=== PATIENT | female | born 1940 | race Caucasian/White ===

== ENCOUNTER 2018-04-12 10:41 | Inpatient (IN) | payer MEDICARE, OTHER ==
[~2018-04-12] VITALS: Ht 175.3 cm; Wt 73.5 kg
[~2018-04-12 10:41] MED LIST: Cipro500 MG PO; Flagyl500 MG PO; Percocet 5-3251 EACH PO; Zofran Odt4 MG SL
[2018-04-12 11:40] LABS: BASOPHILS ABSOLUTE AUTO 0.01 K/mm3 (0.00-0.23); BASOPHILS PERCENT AUTO 0 % (0-2); EOSINOPHILS ABSOLUTE AUTO 0.03 K/mm3 (0.00-0.68); EOSINOPHILS PERCENT AUTO 1 % (0-6); IMMATURE GRAN ABSOLUTE AUTO 0.01 K/mm3 (0.00-0.10); IMMATURE GRAN PERCENT AUTO 0 % (0-1); LYMPHOCYTES ABSOLUTE AUTO 0.69 K/mm3 (0.84-5.20); LYMPHOCYTES PERCENT AUTO 15 % (21-46); MONOCYTES ABSOLUTE AUTO 0.44 K/mm3 (0.16-1.47); MONOCYTES PERCENT AUTO 10 % (4-13); Mean Corpuscular HGB Conc 34.1 g/dL (31.5-36.5); Mean Corpuscular Volume 88 fL (80-100); Mean Platelet Volume 9.2 fL (9.1-12.4); NEUTROPHILS ABSOLUTE AUTO 3.46 K/mm3 (1.96-9.15); NEUTROPHILS PERCENT AUTO 75 % (41-73); Platelet Count 231 K/mm3 (150-400); RDW Coefficient Variation 12.8 % (11.7-14.2); RDW Standard Deviation 41.3 fL (35.1-46.3); Red Blood Cell Count 4.66 M/mm3 (3.80-5.20); White Blood Cell Count 4.64 K/mm3 (4.00-11.30)
[2018-04-12 11:56] LABS: Alanine Aminotransfer (ALT/SGP 20 U/L (12-78); Albumin, Blood 3.6 g/dL (3.4-5.0); Albumin/Globulin Ratio 0.9 (0.8-1.8); Alk Phos 124 U/L (50-136); Anion Gap 8 mmol/L (6-16); Aspartate Aminotrans (AST/SGOT 19 U/L (12-37); Bilirubin, Total 0.6 mg/dL (0.1-1.0); Blood Urea Nitrogen 9 mg/dL (8-24); Bun/Creatinine Ratio 12.1 (12.0-20.0); CO2, Blood 26 mmol/L (21-32); Calcium, Blood 9.4 mg/dL (8.5-10.1); Chloride, Blood 105 mmol/L (98-108); Creatinine, Blood 0.74 mg/dL (0.40-1.00); Globulin, Blood 3.8 g/dL (2.2-4.0); Glomerular Filtration Rate >60 (60-); Glucose, Blood 104 mg/dL (70-99); Potassium, Blood 3.7 mmol/L (3.5-5.5); Sodium, Blood 139 mmol/L (136-145); Total Protein, Blood 7.4 g/dL (6.4-8.2)
[2018-04-13 17:37] LABS: BASOPHILS ABSOLUTE AUTO 0.01 K/mm3 (0.00-0.23); BASOPHILS PERCENT AUTO 0 % (0-2); EOSINOPHILS PERCENT AUTO 0 % (0-6); Hematocrit 41.3 % (33.0-51.0); IMMATURE GRAN ABSOLUTE AUTO 0.03 K/mm3 (0.00-0.10); IMMATURE GRAN PERCENT AUTO 0 % (0-1); LYMPHOCYTES ABSOLUTE AUTO 0.55 K/mm3 (0.84-5.20); LYMPHOCYTES PERCENT AUTO 7 % (21-46); MONOCYTES PERCENT AUTO 8 % (4-13); Mean Corpuscular HGB 29.9 pg (26.0-34.0); Mean Corpuscular HGB Conc 33.9 g/dL (31.5-36.5); Mean Corpuscular Volume 88 fL (80-100); Mean Platelet Volume 9.2 fL (9.1-12.4); NEUTROPHILS ABSOLUTE AUTO 7.22 K/mm3 (1.96-9.15); NEUTROPHILS PERCENT AUTO 85 % (41-73); Platelet Count 179 K/mm3 (150-400); Red Blood Cell Count 4.68 M/mm3 (3.80-5.20); White Blood Cell Count 8.51 K/mm3 (4.00-11.30)
[2018-04-13 17:51] LABS: Alanine Aminotransfer (ALT/SGP 280 U/L (12-78); Albumin, Blood 3.3 g/dL (3.4-5.0); Albumin/Globulin Ratio 0.9 (0.8-1.8); Alk Phos 392 U/L (50-136); Anion Gap 7 mmol/L (6-16); Aspartate Aminotrans (AST/SGOT 276 U/L (12-37); Bilirubin, Total 3.5 mg/dL (0.1-1.0); Blood Urea Nitrogen 5 mg/dL (8-24); Bun/Creatinine Ratio 9.4 (12.0-20.0); CO2, Blood 26 mmol/L (21-32); Chloride, Blood 106 mmol/L (98-108); Creatinine, Blood 0.53 mg/dL (0.40-1.00); Globulin, Blood 3.5 g/dL (2.2-4.0); Glomerular Filtration Rate >60 (60-); Glucose, Blood 133 mg/dL (70-99); Potassium, Blood 3.5 mmol/L (3.5-5.5); Sodium, Blood 139 mmol/L (136-145); Total Protein, Blood 6.8 g/dL (6.4-8.2)
== END 2018-04-13 19:00 | disposition short-term general hospital (02) | DRG 444 ==
LOC: ER 10:41 → SURS 12:54
PROVIDERS: Emergency Medicine; Surgery
DX: K80.50 Calculus of bile duct without cholangitis or cholecystitis without obstruction (principal); K82.2 Perforation of gallbladder; Z79.899 Other long term (current) drug therapy; Z96.649 Presence of unspecified artificial hip joint
CPT/HCPCS: 36415; 74183; 76705; 80053; 83690; 85025; 93005; 93010; 94762; 96360; 99285-25; A9577; J0295; J1170; J2405; J2550; J3010; J7030; J7120

== ENCOUNTER 2024-11-20 22:08 | Inpatient (IN) | payer MEDICARE, OTHER ==
[~2024-11-20] VITALS: Ht 175.3 cm; Wt 72.8 kg
[~2024-11-20 22:08] MED LIST changes: +ONDA4ODT MM; +Prednisone20 MG PO; +Protonix40 MG PO; +VALA500 PO
[2024-11-20] MEDS ORDERED: Metoprolol Tartrate 1 MG/ML 5 ML VIAL IV PRN (22:25)
[2024-11-20 22:29] LABS: BASOPHILS ABSOLUTE AUTO 0.04 K/mm3 (0.00-0.23); BASOPHILS PERCENT AUTO 1 % (0-2); EOSINOPHILS ABSOLUTE AUTO 0.04 K/mm3 (0.00-0.68); EOSINOPHILS PERCENT AUTO 1 % (0-6); Hematocrit 38.4 % (33.0-51.0); Hemoglobin 12.5 g/dL (11.5-16.0); IMMATURE GRAN ABSOLUTE AUTO 0.01 K/mm3 (0.00-0.10); IMMATURE GRAN PERCENT AUTO 0 % (0-1); LYMPHOCYTES ABSOLUTE AUTO 1.91 K/mm3 (0.84-5.20); LYMPHOCYTES PERCENT AUTO 33 % (21-46); MONOCYTES ABSOLUTE AUTO 0.54 K/mm3 (0.16-1.47); MONOCYTES PERCENT AUTO 9 % (4-13); Mean Corpuscular HGB 30.8 pg (26.0-34.0); Mean Corpuscular HGB Conc 32.6 g/dL (31.5-36.5); Mean Corpuscular Volume 95 fL (80-100); Mean Platelet Volume 10.4 fL (9.1-12.4); NEUTROPHILS ABSOLUTE AUTO 3.34 K/mm3 (1.96-9.15); NEUTROPHILS PERCENT AUTO 57 % (41-73); Platelet Count 178 K/mm3 (150-400); RDW Coefficient Variation 14.2 % (11.7-14.2); RDW Standard Deviation 49.1 fL (35.1-46.3); Red Blood Cell Count 4.06 M/mm3 (3.80-5.20); White Blood Cell Count 5.88 K/mm3 (4.00-11.30)
[2024-11-20] MEDS ORDERED: ELIQUIS5 M2 PO (22:33)
[2024-11-20] MEDS ORDERED: CARV6.25 PO (22:33)
[2024-11-20 22:45] LABS: Calcium, Blood 8.6 mg/dL (8.5-10.1); Creatinine, Blood 0.73 mg/dL (0.40-1.00); Potassium, Blood 3.7 mmol/L (3.5-5.5)
[2024-11-21] MEDS ORDERED: FLU VACC TS2024-25(6MOS UP)/PF 45 MCG/0.5 ML SYRINGE IM ONE (00:30)
[2024-11-21] MEDS ORDERED: Acetaminophen 325 MG TABLET PO PRN (00:30)
[2024-11-21] MEDS ORDERED: Metoprolol Tartrate 25 MG Tab PO ONE (01:00)
[2024-11-21] MEDS ORDERED: Ondansetron 4 MG SoluTab SL PRN (03:55)
[2024-11-21] MEDS ORDERED: Melatonin 5 MG Tablet PO PRN (03:55)
[2024-11-21] MEDS ORDERED: Melatonin 5 MG Tablet PO ONE (04:00)
[2024-11-21 06:19] LABS: BASOPHILS ABSOLUTE AUTO 0.03 K/mm3 (0.00-0.23); BASOPHILS PERCENT AUTO 1 % (0-2); EOSINOPHILS ABSOLUTE AUTO 0.05 K/mm3 (0.00-0.68); EOSINOPHILS PERCENT AUTO 1 % (0-6); Hematocrit 39.6 % (33.0-51.0); Hemoglobin 12.8 g/dL (11.5-16.0); IMMATURE GRAN ABSOLUTE AUTO 0.02 K/mm3 (0.00-0.10); IMMATURE GRAN PERCENT AUTO 0 % (0-1); LYMPHOCYTES ABSOLUTE AUTO 1.35 K/mm3 (0.84-5.20); LYMPHOCYTES PERCENT AUTO 22 % (21-46); MONOCYTES ABSOLUTE AUTO 0.53 K/mm3 (0.16-1.47); MONOCYTES PERCENT AUTO 9 % (4-13); Mean Corpuscular HGB 30.9 pg (26.0-34.0); Mean Corpuscular HGB Conc 32.3 g/dL (31.5-36.5); Mean Corpuscular Volume 96 fL (80-100); Mean Platelet Volume 10.8 fL (9.1-12.4); NEUTROPHILS ABSOLUTE AUTO 4.13 K/mm3 (1.96-9.15); NEUTROPHILS PERCENT AUTO 68 % (41-73); Platelet Count 181 K/mm3 (150-400); RDW Coefficient Variation 14.3 % (11.7-14.2); RDW Standard Deviation 49.3 fL (35.1-46.3); Red Blood Cell Count 4.14 M/mm3 (3.80-5.20); White Blood Cell Count 6.11 K/mm3 (4.00-11.30)
[2024-11-21 06:50] LABS: Albumin, Blood 3.7 g/dL (3.4-5.0); Albumin/Globulin Ratio 1.3 (0.8-1.8); Bilirubin, Total 1.4 mg/dL (0.1-1.0); Bun/Creatinine Ratio 39.1 (12.0-20.0); Creatinine, Blood 0.77 mg/dL (0.40-1.00); Globulin, Blood 2.9 g/dL (2.2-4.0); Total Protein, Blood 6.6 g/dL (6.4-8.2)
[2024-11-21 08:47] VITALS: BP 113/84
[2024-11-21] MEDS ORDERED: FURO20 PO (08:59)
[2024-11-21] MEDS ORDERED: Apixaban 5 MG Tab PO SCH (09:00)
[2024-11-21] MEDS ORDERED: Metoprolol Tartrate 25 MG Tab PO SCH (09:00)
[2024-11-21] MEDS ORDERED: HyDROXyzine HCl 25 MG Tab PO PRN (12:05)
[2024-11-21] MEDS ORDERED: Furosemide 10 MG / ML 2ML Vial IV SCH (13:00)
[2024-11-21] MEDS ORDERED: Furosemide 10 MG / ML 2ML Vial IV ONE (13:00)
[2024-11-21 13:14] VITALS: BP 111/86
[2024-11-21 15:26] VITALS: BP 95/74
[2024-11-21 17:08] VITALS: BP 101/76
--- NOTE | 2024-11-21 17:48 | NUR ---
PT CAME FROM ED THIS MORNING. PT ON TELE AND CONT BIOX SAT HIGH 90'S ON RA. PT HAD C/O HEADACHE AT START OF SHIFT WITH PRN TYLENOL GIVEN WITH EFFECT. PT IS STBY IN ROOM TO BATHROOM.
[2024-11-21 19:40] VITALS: BP 103/81
[2024-11-22 00:16] VITALS: BP 92/71
--- NOTE | 2024-11-22 03:40 | NUR ---
AAOX4, INDEPENDENT IN ROOM. TELE, AFIB 110'S. 1L O2 VIA NC @ HS. RESTLESS NIGHT, UNABLE TO GET COMFORTABLE AND ANXIOUS. ADMING PRN MEDICATIONS WITH SOME RELIEF.
[2024-11-22 03:47] VITALS: BP 98/73
[2024-11-22 05:52] LABS: Hematocrit 35.7 % (33.0-51.0); Hemoglobin 11.6 g/dL (11.5-16.0); Mean Corpuscular HGB 30.7 pg (26.0-34.0); Mean Corpuscular HGB Conc 32.5 g/dL (31.5-36.5); Mean Corpuscular Volume 94 fL (80-100); Mean Platelet Volume 11.2 fL (9.1-12.4); Platelet Count 153 K/mm3 (150-400); RDW Coefficient Variation 14.3 % (11.7-14.2); RDW Standard Deviation 48.7 fL (35.1-46.3); Red Blood Cell Count 3.78 M/mm3 (3.80-5.20); White Blood Cell Count 5.72 K/mm3 (4.00-11.30)
[2024-11-22] MEDS ORDERED: Pantoprazole Sodium 40 MG Tab PO SCH (06:00)
[2024-11-22 06:17] LABS: Albumin, Blood 3.3 g/dL (3.4-5.0); Albumin/Globulin Ratio 1.3 (0.8-1.8); Bilirubin, Total 1.4 mg/dL (0.1-1.0); Calcium, Blood 8.4 mg/dL (8.5-10.1); Creatinine, Blood 1.03 mg/dL (0.40-1.00); Globulin, Blood 2.6 g/dL (2.2-4.0); Potassium, Blood 3.8 mmol/L (3.5-5.5); Total Protein, Blood 5.9 g/dL (6.4-8.2)
[2024-11-22 07:48] VITALS: BP 103/81
[2024-11-22 10:22] VITALS: BP 116/90
[2024-11-22] MEDS ORDERED: Empagliflozin 10 MG TAB PO SCH (13:00)
[2024-11-22 15:38] VITALS: BP 120/68
--- NOTE | 2024-11-22 17:39 | NUR ---
PT HAD SOB AND WHEN AMBUATING. PT NEEDED 1 L NC TO KEEP ABOVE 95% PT HAD MINOR C/O HEADACHE WITH TYLENOL GIVEN AND RESOLVED.
[2024-11-22 19:18] VITALS: BP 110/59
--- NOTE | 2024-11-22 19:50 | NUR ---
CARE ASSUMED FOR THIS PATIENT. REPORT RECEIVED FROM DAY RN. PATIENT IS ALER, ORIENTATED. ABLE TO MAKE NEEDS KNOWN AND PARTICIPATE IN BEDSIDE REPORT. CONTINUE CARE.
[2024-11-23 00:20] VITALS: BP 115/72
--- NOTE | 2024-11-23 03:42 | NUR ---
Call from [employer] now patient had a run of Afib with RVR at 150 BPM for a short burst. Patient was asleep at the time. Is on a sleep study. Room Air. Continue Care
[2024-11-23 03:59] VITALS: BP 102/74
--- NOTE | 2024-11-23 05:08 | NUR ---
Patient had sleep study last night which ended this morning. Patient was restelss much of the night. She states she doesn't sleep well at home either. Usually gets up OOB when she can't sleep. Concerned when she found out she was not receiving O2 during the night. Explained that her O2 saturations were over 90% and she was doing well. She didn't agree with this and said it would be a long night. Atarax given for anxiety. One short burst of RVR in the 150's while she was asleep and asymptomatic. Possible discharge to home today. Continue Care.
[2024-11-23 05:33] LABS: BASOPHILS ABSOLUTE AUTO 0.04 K/mm3 (0.00-0.23); BASOPHILS PERCENT AUTO 1 % (0-2); EOSINOPHILS ABSOLUTE AUTO 0.11 K/mm3 (0.00-0.68); EOSINOPHILS PERCENT AUTO 2 % (0-6); Hematocrit 36.5 % (33.0-51.0); IMMATURE GRAN ABSOLUTE AUTO 0.01 K/mm3 (0.00-0.10); IMMATURE GRAN PERCENT AUTO 0 % (0-1); LYMPHOCYTES ABSOLUTE AUTO 1.86 K/mm3 (0.84-5.20); LYMPHOCYTES PERCENT AUTO 31 % (21-46); MONOCYTES ABSOLUTE AUTO 0.55 K/mm3 (0.16-1.47); MONOCYTES PERCENT AUTO 9 % (4-13); Mean Corpuscular HGB 30.7 pg (26.0-34.0); Mean Corpuscular HGB Conc 32.9 g/dL (31.5-36.5); Mean Corpuscular Volume 93 fL (80-100); Mean Platelet Volume 10.6 fL (9.1-12.4); NEUTROPHILS ABSOLUTE AUTO 3.43 K/mm3 (1.96-9.15); NEUTROPHILS PERCENT AUTO 57 % (41-73); Platelet Count 160 K/mm3 (150-400); RDW Coefficient Variation 14.2 % (11.7-14.2); RDW Standard Deviation 48.5 fL (35.1-46.3); Red Blood Cell Count 3.91 M/mm3 (3.80-5.20)
[2024-11-23 05:55] LABS: Albumin, Blood 3.4 g/dL (3.4-5.0); Albumin/Globulin Ratio 1.2 (0.8-1.8); Bilirubin, Total 1.1 mg/dL (0.1-1.0); Bun/Creatinine Ratio 32.4 (12.0-20.0); Calcium, Blood 8.8 mg/dL (8.5-10.1); Creatinine, Blood 1.02 mg/dL (0.40-1.00); Globulin, Blood 2.8 g/dL (2.2-4.0); Potassium, Blood 3.4 mmol/L (3.5-5.5); Total Protein, Blood 6.2 g/dL (6.4-8.2)
--- NOTE | 2024-11-23 06:15 | NUR ---
Call again at 0547 from [employer] patient heart rate up to the 150's. Patient was getting up to use BSC when this happened. Asked patient if she felt any different. She stated "doesn't everyone's heart rate go up when they get up?" Asymptomatic. Patient very restless. Slept very little last night
[2024-11-23 07:21] VITALS: BP 106/68
[2024-11-23] MEDS ORDERED: Potassium Chloride 20 MEQ TabCR PO SCH (09:00)
[2024-11-23] MEDS ORDERED: Metoprolol Succinate 25 MG TABCR PO SCH (09:00)
[2024-11-23 11:46] VITALS: BP 111/81
[2024-11-23] MEDS ORDERED: Metoprolol Succinate 25 MG TABCR PO ONE (13:00)
[2024-11-23 14:26] LABS: Bun/Creatinine Ratio 31.3 (12.0-20.0); Creatinine, Blood 0.99 mg/dL (0.40-1.00); Potassium, Blood 3.9 mmol/L (3.5-5.5)
[2024-11-23 15:17] VITALS: BP 108/77
--- NOTE | 2024-11-23 16:23 | NUR ---
NO ACUTE CHANGES THIS SHIFT. PT DOES NOT REQUIRE O2, EDUCATION PROVIDED TO PT. PT COOPERATIVE WITH CARE. REPORTS ANXIETY. PT DECLINED HYDROXYZINE PRN. INDEPENDENT TO BSC. INCREASED WOB WITH AMBULATION. CALLS APPROPRIATELY
[2024-11-23] MEDS ORDERED: Furosemide 20 MG Tab PO SCH (18:00)
[2024-11-23] MEDS ORDERED: Furosemide 40 MG Tab PO SCH (18:00)
[2024-11-23 19:22] VITALS: BP 115/70
--- NOTE | 2024-11-24 03:48 | NUR ---
SHIFT SUMMARY PT ALERT ORIENTED X 4 ABLE TO VERBALIZE NEEDS GETS UP WITH 1 PERSON SBA AND AMBULATES TO BATHROOM. C/O ANXIETY MEDICATED WITH ATARAX X 1 WITH SOME RELIEF. C/O NOT SLEEPING MEDICATED WITH MELATONIN BUT DUE TO PT GETTING LASIX AT 1800 PT WAS UP SEVERAL TIMES DURING THE NIGHT TO GO TO THE BATHROOM. PASS ON TO DAY SHIFT TO TRY TO CHANGE TIMES FOR LASIX. REMAINS ON A CONTINUOUS PULSE OX SATTING BETWEEN 90-95% ON RA. CONTINUES ON A DAILY WEIGHT AND STRICT I&OS. NO C/O PAIN THIS SHIFT. VSS ON RA. C/O SOB ON EXERTION. CALL LIGHT IN REACH
[2024-11-24 04:25] VITALS: BP 123/76
[2024-11-24 05:41] LABS: Hematocrit 35.9 % (33.0-51.0); Hemoglobin 11.9 g/dL (11.5-16.0); Mean Corpuscular HGB 30.7 pg (26.0-34.0); Mean Corpuscular HGB Conc 33.1 g/dL (31.5-36.5); Mean Corpuscular Volume 93 fL (80-100); Mean Platelet Volume 10.9 fL (9.1-12.4); Platelet Count 156 K/mm3 (150-400); RDW Coefficient Variation 14.1 % (11.7-14.2); RDW Standard Deviation 47.3 fL (35.1-46.3); Red Blood Cell Count 3.87 M/mm3 (3.80-5.20); White Blood Cell Count 5.61 K/mm3 (4.00-11.30)
[2024-11-24 06:15] LABS: Albumin, Blood 3.3 g/dL (3.4-5.0); Albumin/Globulin Ratio 1.2 (0.8-1.8); Bilirubin, Total 0.9 mg/dL (0.1-1.0); Bun/Creatinine Ratio 33.3 (12.0-20.0); Calcium, Blood 8.8 mg/dL (8.5-10.1); Creatinine, Blood 0.99 mg/dL (0.40-1.00); Globulin, Blood 2.8 g/dL (2.2-4.0); Potassium, Blood 3.3 mmol/L (3.5-5.5); Total Protein, Blood 6.1 g/dL (6.4-8.2)
[2024-11-24 07:45] VITALS: BP 124/69
[2024-11-24] MEDS ORDERED: Potassium Chloride 20 MEQ TabCR PO ONE ×2 (08:00→11:02)
[2024-11-24] MEDS ORDERED: Metoprolol Succinate 25 MG TABCR PO SCH (09:00)
[2024-11-24 11:13] VITALS: BP 116/68
[2024-11-24] MEDS ORDERED: Sacubitril/Valsartan 24 MG-26 MG Tab PO SCH (12:00)
[2024-11-24] MEDS ORDERED: Metoprolol Succinate 25 MG TABCR PO ONE (13:00)
[2024-11-24] MEDS ORDERED: FURO40 PO (13:52)
[2024-11-24] MEDS ORDERED: JARDIANCE10 MG PO (13:53)
[2024-11-24] MEDS ORDERED: METO25ER PO (13:53)
[2024-11-24] MEDS ORDERED: PANT40 PO (14:01)
[2024-11-24] MEDS ORDERED: ENTRESTO 24 MG1 EACH PO (14:02)
[2024-11-24] MEDS ORDERED: SPIR25 PO (14:02)
[2024-11-24] MEDS ORDERED: POTCHL20ER PO (14:02)
--- NOTE | 2024-11-24 16:36 | NUR ---
PT DISCHARGED HOME WITH HOME HEALTH. R/A, INDEPENDENT WITH CANE, PT REFUSED WALKER AT THIS TIME. DISCHARGE INSTRUCTIONS DISCUSSED WITH PT AND DAUGHTER. NO QUESTIONS OR CONCERNS AT THIS TIME.
[2024-11-25] MEDS ORDERED: Metoprolol Succinate 25 MG TABCR PO SCH (09:00)
== END 2024-11-24 16:12 | disposition home health service (06) | DRG 308 ==
LOC: ER 22:08 → ERHOLD 22:09 → MEDS 11-21 08:42
PROVIDERS: Student in an Organized Health Care Education/Training Program; ADMIT Student in an Organized Health Care Education/Training Program
DX: I48.91 Unspecified atrial fibrillation (principal); I50.23 Acute on chronic systolic (congestive) heart failure; K21.9 Gastro-esophageal reflux disease without esophagitis; F41.9 Anxiety disorder, unspecified; Z96.649 Presence of unspecified artificial hip joint; Z79.52 Long term (current) use of systemic steroids; Z79.899 Other long term (current) drug therapy; Z87.19 Personal history of other diseases of the digestive system; Z79.01 Long term (current) use of anticoagulants; Z87.891 Personal history of nicotine dependence
CPT/HCPCS: 36415; 71045; 80048; 80053; 83735; 83880; 84443; 84484; 85025; 85027; 93005; 93010; 93306; 94761; 94762; 96374; 96375; 96376; 97116; 97162; 97530; 99285-25; A9270; G0378; J1940

== ENCOUNTER 2024-11-29 22:25 | Emergency (ER) | payer MEDICARE, OTHER ==
[~2024-11-29] VITALS: Ht 175.3 cm; Wt 72.6 kg
[~2024-11-29 22:25] MED LIST changes: +CARV6.25 PO; +ELIQUIS5 M2 PO; +ENTRESTO 24 MG1 EACH PO; +FURO20 PO; +FURO40 PO; +JARDIANCE10 MG PO; +METO25ER PO; +PANT40 PO; +POTCHL20ER PO; +SPIR25 PO
[2024-11-29 22:50] LABS: BASOPHILS ABSOLUTE AUTO 0.05 K/mm3 (0.00-0.23); BASOPHILS PERCENT AUTO 1 % (0-2); EOSINOPHILS ABSOLUTE AUTO 0.12 K/mm3 (0.00-0.68); EOSINOPHILS PERCENT AUTO 2 % (0-6); Hematocrit 45.2 % (33.0-51.0); Hemoglobin 14.9 g/dL (11.5-16.0); IMMATURE GRAN ABSOLUTE AUTO 0.01 K/mm3 (0.00-0.10); IMMATURE GRAN PERCENT AUTO 0 % (0-1); LYMPHOCYTES ABSOLUTE AUTO 2.89 K/mm3 (0.84-5.20); LYMPHOCYTES PERCENT AUTO 36 % (21-46); MONOCYTES PERCENT AUTO 10 % (4-13); Mean Corpuscular HGB 30.7 pg (26.0-34.0); Mean Corpuscular Volume 93 fL (80-100); NEUTROPHILS ABSOLUTE AUTO 4.13 K/mm3 (1.96-9.15); NEUTROPHILS PERCENT AUTO 52 % (41-73); Platelet Count 241 K/mm3 (150-400); RDW Coefficient Variation 13.7 % (11.7-14.2); RDW Standard Deviation 46.4 fL (35.1-46.3); Red Blood Cell Count 4.85 M/mm3 (3.80-5.20)
[2024-11-29 23:09] LABS: Albumin, Blood 3.8 g/dL (3.4-5.0); Albumin/Globulin Ratio 1.1 (0.8-1.8); Bilirubin, Total 1.3 mg/dL (0.1-1.0); Bun/Creatinine Ratio 36.5 (12.0-20.0); Calcium, Blood 9.3 mg/dL (8.5-10.1); Creatinine, Blood 1.04 mg/dL (0.40-1.00); Globulin, Blood 3.5 g/dL (2.2-4.0); Potassium, Blood 3.6 mmol/L (3.5-5.5); Total Protein, Blood 7.3 g/dL (6.4-8.2)
[2024-11-30] MEDS ORDERED: NS 1,000 ML IV SCH (00:25)
[2024-11-30 00:40] VITALS: BP 100/62
== END 2024-11-30 02:24 | disposition home or self-care (01) ==
LOC: ER 22:25
PROVIDERS: Emergency Medicine
DX: E86.0 Dehydration (principal); I48.0 Paroxysmal atrial fibrillation; R94.4 Abnormal results of kidney function studies; I10 Essential (primary) hypertension; Z79.01 Long term (current) use of anticoagulants; Z79.84 Long term (current) use of oral hypoglycemic drugs; Z79.899 Other long term (current) drug therapy; Z59.89 Other problems related to housing and economic circumstances
CPT/HCPCS: 71045; 80053; 83690; 83880; 84484; 85025; 93005; 93010; 99285-25; J7030

== ENCOUNTER 2024-11-30 14:22 | Emergency (ER) | payer MEDICARE, OTHER ==
[~2024-11-30] VITALS: Ht 175.3 cm; Wt 69.4 kg
[2024-11-30 15:13] VITALS: BP 105/79
[2024-11-30 16:07] LABS: BASOPHILS ABSOLUTE AUTO 0.05 K/mm3 (0.00-0.23); BASOPHILS PERCENT AUTO 1 % (0-2); EOSINOPHILS ABSOLUTE AUTO 0.07 K/mm3 (0.00-0.68); EOSINOPHILS PERCENT AUTO 1 % (0-6); Hematocrit 46.8 % (33.0-51.0); Hemoglobin 15.3 g/dL (11.5-16.0); IMMATURE GRAN ABSOLUTE AUTO 0.01 K/mm3 (0.00-0.10); IMMATURE GRAN PERCENT AUTO 0 % (0-1); LYMPHOCYTES ABSOLUTE AUTO 2.21 K/mm3 (0.84-5.20); LYMPHOCYTES PERCENT AUTO 32 % (21-46); MONOCYTES ABSOLUTE AUTO 0.67 K/mm3 (0.16-1.47); MONOCYTES PERCENT AUTO 10 % (4-13); Mean Corpuscular HGB 30.5 pg (26.0-34.0); Mean Corpuscular HGB Conc 32.7 g/dL (31.5-36.5); Mean Corpuscular Volume 93 fL (80-100); Mean Platelet Volume 10.3 fL (9.1-12.4); NEUTROPHILS ABSOLUTE AUTO 3.88 K/mm3 (1.96-9.15); NEUTROPHILS PERCENT AUTO 56 % (41-73); Platelet Count 223 K/mm3 (150-400); RDW Coefficient Variation 13.9 % (11.7-14.2); RDW Standard Deviation 47.5 fL (35.1-46.3); Red Blood Cell Count 5.02 M/mm3 (3.80-5.20); White Blood Cell Count 6.89 K/mm3 (4.00-11.30)
[2024-11-30 16:33] LABS: Albumin, Blood 4.2 g/dL (3.4-5.0); Albumin/Globulin Ratio 1.3 (0.8-1.8); Bilirubin, Total 1.6 mg/dL (0.1-1.0); Bun/Creatinine Ratio 37.2 (12.0-20.0); Calcium, Blood 9.7 mg/dL (8.5-10.1); Creatinine, Blood 0.89 mg/dL (0.40-1.00); Globulin, Blood 3.2 g/dL (2.2-4.0); Potassium, Blood 3.5 mmol/L (3.5-5.5); Total Protein, Blood 7.4 g/dL (6.4-8.2)
== END 2024-11-30 21:01 | disposition home or self-care (01) ==
LOC: ER 14:22
PROVIDERS: Student in an Organized Health Care Education/Training Program
DX: R06.02 Shortness of breath (principal); I11.0 Hypertensive heart disease with heart failure; I50.9 Heart failure, unspecified; I48.91 Unspecified atrial fibrillation; Z79.01 Long term (current) use of anticoagulants; Z79.84 Long term (current) use of oral hypoglycemic drugs; Z79.899 Other long term (current) drug therapy
CPT/HCPCS: 71046; 80053; 83880; 84484; 85025; 93005; 93010; 99285-25

== ENCOUNTER 2024-12-01 04:10 | Inpatient (IN) | payer MEDICARE, OTHER ==
[~2024-12-01] VITALS: Ht 175.3 cm; Wt 68.0 kg
[2024-12-01] VITALS (11 sets, daily range): BP systolic 74–149; BP diastolic 48–136
[2024-12-01] MEDS ORDERED: Digoxin 0.25 MG/ML 2ML Amp IV ONE (05:00)
[2024-12-01] MEDS ORDERED: Acetaminophen 325 MG TABLET PO PRN (05:25)
[2024-12-01] MEDS ORDERED: Ondansetron HCl 2 MG / ML 2ML Vial IV PRN (05:30)
[2024-12-01 05:38] LABS: BASOPHILS ABSOLUTE AUTO 0.04 K/mm3 (0.00-0.23); BASOPHILS PERCENT AUTO 1 % (0-2); EOSINOPHILS ABSOLUTE AUTO 0.13 K/mm3 (0.00-0.68); EOSINOPHILS PERCENT AUTO 2 % (0-6); Hematocrit 42.4 % (33.0-51.0); Hemoglobin 14.2 g/dL (11.5-16.0); IMMATURE GRAN ABSOLUTE AUTO 0.01 K/mm3 (0.00-0.10); IMMATURE GRAN PERCENT AUTO 0 % (0-1); LYMPHOCYTES ABSOLUTE AUTO 2.08 K/mm3 (0.84-5.20); LYMPHOCYTES PERCENT AUTO 37 % (21-46); MONOCYTES ABSOLUTE AUTO 0.51 K/mm3 (0.16-1.47); MONOCYTES PERCENT AUTO 9 % (4-13); Mean Corpuscular HGB 30.5 pg (26.0-34.0); Mean Corpuscular HGB Conc 33.5 g/dL (31.5-36.5); Mean Corpuscular Volume 91 fL (80-100); Mean Platelet Volume 10.1 fL (9.1-12.4); NEUTROPHILS ABSOLUTE AUTO 2.85 K/mm3 (1.96-9.15); NEUTROPHILS PERCENT AUTO 51 % (41-73); Platelet Count 214 K/mm3 (150-400); RDW Coefficient Variation 13.8 % (11.7-14.2); RDW Standard Deviation 46.5 fL (35.1-46.3); Red Blood Cell Count 4.65 M/mm3 (3.80-5.20); White Blood Cell Count 5.62 K/mm3 (4.00-11.30)
[2024-12-01 05:54] LABS: International Normalized Ratio 1.11; Prothrombin Time Results 11.8 Sec (9.7-11.5)
[2024-12-01 06:08] LABS: Albumin, Blood 3.7 g/dL (3.4-5.0); Albumin/Globulin Ratio 1.2 (0.8-1.8); Bilirubin, Total 1.7 mg/dL (0.1-1.0); Bun/Creatinine Ratio 41.2 (12.0-20.0); Calcium, Blood 9.1 mg/dL (8.5-10.1); Creatinine, Blood 0.9 mg/dL (0.40-1.00); Globulin, Blood 3.1 g/dL (2.2-4.0); Magnesium, Blood 2.4 mg/dL (1.6-2.4); Phosphorus, Blood 3.9 mg/dL (2.5-4.9); Potassium, Blood 3.4 mmol/L (3.5-5.5); Total Protein, Blood 6.8 g/dL (6.4-8.2)
[2024-12-01] MEDS ORDERED: Potassium Chloride 20 MEQ TabCR PO SCH ×2 (07:00→09:00)
[2024-12-01] MEDS ORDERED: Apixaban 5 MG Tab PO SCH (09:00)
[2024-12-01] MEDS ORDERED: Sacubitril/Valsartan 24 MG-26 MG Tab PO SCH (09:00)
[2024-12-01] MEDS ORDERED: Furosemide 40 MG Tab PO SCH (09:00)
[2024-12-01] MEDS ORDERED: Spironolactone 12.5 MG TAB PO SCH (09:00)
[2024-12-01] MEDS ORDERED: Empagliflozin 10 MG TAB PO SCH (09:00)
[2024-12-01] MEDS ORDERED: Metoprolol Succinate 25 MG TABCR PO SCH (09:00)
[2024-12-01] MEDS ORDERED: Digoxin 0.25 MG/ML 2ML Amp IV SCH (09:30)
--- NOTE | 2024-12-01 17:40 | NUR ---
Shift Summary Received report from ED RN this am, pt to room at 0746, sba transfered to bed. Pt alert, oriented x4; [place]; calm and cooperative with care. Up to bathroom with sba. Pt BP on left 79/58 and on rigth 103/70; notified Dr Duncan, placed order for upper extremitiy dulex this evening. Pt reports ble pain, medicated this am x1. Pt denies chest pain/pressure, nausea, dizziness and numb/tingling. Pt reports SOB this afternoon, placed 2l o2 via nc, tirated down to ra. Tele afib 90-100's while at rest, 110-140 with ambulation, bp soft. Abd soft, nontender, +bt noted t/o. Other vss. No other acute changes noted. Will continue to monitor.
[2024-12-02] VITALS (9 sets, daily range): BP systolic 95–113; BP diastolic 48–83
[2024-12-02 03:42] LABS: BASOPHILS ABSOLUTE AUTO 0.05 K/mm3 (0.00-0.23); BASOPHILS PERCENT AUTO 1 % (0-2); EOSINOPHILS ABSOLUTE AUTO 0.16 K/mm3 (0.00-0.68); EOSINOPHILS PERCENT AUTO 3 % (0-6); Hematocrit 43.6 % (33.0-51.0); IMMATURE GRAN ABSOLUTE AUTO 0.02 K/mm3 (0.00-0.10); IMMATURE GRAN PERCENT AUTO 0 % (0-1); LYMPHOCYTES ABSOLUTE AUTO 1.97 K/mm3 (0.84-5.20); LYMPHOCYTES PERCENT AUTO 31 % (21-46); MONOCYTES ABSOLUTE AUTO 0.58 K/mm3 (0.16-1.47); MONOCYTES PERCENT AUTO 9 % (4-13); Mean Corpuscular HGB 29.9 pg (26.0-34.0); Mean Corpuscular HGB Conc 32.1 g/dL (31.5-36.5); Mean Corpuscular Volume 93 fL (80-100); Mean Platelet Volume 9.9 fL (9.1-12.4); NEUTROPHILS ABSOLUTE AUTO 3.56 K/mm3 (1.96-9.15); NEUTROPHILS PERCENT AUTO 56 % (41-73); Platelet Count 217 K/mm3 (150-400); RDW Coefficient Variation 13.8 % (11.7-14.2); RDW Standard Deviation 46.7 fL (35.1-46.3); Red Blood Cell Count 4.68 M/mm3 (3.80-5.20); White Blood Cell Count 6.34 K/mm3 (4.00-11.30)
[2024-12-02 04:10] LABS: Bun/Creatinine Ratio 34.9 (12.0-20.0); Calcium, Blood 8.8 mg/dL (8.5-10.1); Creatinine, Blood 1.06 mg/dL (0.40-1.00); Potassium, Blood 3.7 mmol/L (3.5-5.5)
--- NOTE | 2024-12-02 04:48 | NUR ---
SHIFT SUMMARY: NEURO REMAINED A&OX4, REMAINED IN AFIB RATE CONTROLLED 80S -90S, LUNGS CLEAR NO SOB NOTED PT ASKED FOR PRN O2 BUT DID NOT END UP UTILIZING PRN AT THIS TIME, AMBULATED TO AND FROM BATHROOM CONT OF BOTH BAB.
[2024-12-02] MEDS ORDERED: Potassium Chloride 20 MEQ TabCR PO SCH (09:00)
[2024-12-02] MEDS ORDERED: Digoxin 0.125 MG Tab PO SCH (09:00)
[2024-12-02] MEDS ORDERED: Fludrocortisone Acetate 0.1 MG Tab PO SCH (11:30)
[2024-12-02] MEDS ORDERED: Lactated Ringer's 1,000 ML IV SCH (11:30)
[2024-12-02 16:26] LABS: Digoxin (Lanoxin) 0.86 ug/mL (0.80-2.00)
[2024-12-02] MEDS ORDERED: Metoprolol Tartrate 25 MG Tab PO ONE (16:35)
[2024-12-02] MEDS ORDERED: Metoprolol Tartrate 25 MG Tab PO PRN (16:35)
--- NOTE | 2024-12-02 18:28 | NUR ---
Shift Summary Patient is A/O x4, able to communicate needs, pleasant and cooperative with care, 1 person standby assist for transfers. Continent to urine and stool, ambulates to the bathroom during the day and reports using the bedside commode at night. Tele AFIB, resting heart rate ranges from 90's to 100's. Heart rate with activity increases from 120's to 130's. Patient reports lightheadedness and dizziness with activity and upon rising, positive for orthostatic hypotension, blood pressure reading varies from right arm to left arm, Doppler study negative for explination. IV in left forearm with LR infusing. No edema noted, candida hose in place, denies chest pain or pressure. Respirations are even and unlabored and patient denies cough. Intermittent ronchi in right posterior upper lobe, cleared with position change. Wound to right labia, approx 1 cm in length, coagulated and stopped bleeding without intervention, maxi pad in place for patient comfort. Patient reports that she is unaware of where the injury came from. Dr. Duncan notified, no new orders. Patient denies pain and reports satisfaction with care. Call light within reach.
--- NOTE | 2024-12-02 18:59 | NUR ---
I have reviewed the professional nursing assistant documentation and am in agreement.
[2024-12-02] MEDS ORDERED: Melatonin 3 MG Tab PO PRN (23:20)
[2024-12-03] VITALS (8 sets, daily range): BP systolic 89–128; BP diastolic 60–88
[2024-12-03 04:15] LABS: BASOPHILS ABSOLUTE AUTO 0.03 K/mm3 (0.00-0.23); BASOPHILS PERCENT AUTO 1 % (0-2); EOSINOPHILS PERCENT AUTO 2 % (0-6); Hematocrit 40.2 % (33.0-51.0); Hemoglobin 12.8 g/dL (11.5-16.0); IMMATURE GRAN ABSOLUTE AUTO 0.01 K/mm3 (0.00-0.10); IMMATURE GRAN PERCENT AUTO 0 % (0-1); LYMPHOCYTES ABSOLUTE AUTO 1.94 K/mm3 (0.84-5.20); LYMPHOCYTES PERCENT AUTO 31 % (21-46); MONOCYTES ABSOLUTE AUTO 0.74 K/mm3 (0.16-1.47); MONOCYTES PERCENT AUTO 12 % (4-13); Mean Corpuscular HGB 29.8 pg (26.0-34.0); Mean Corpuscular HGB Conc 31.8 g/dL (31.5-36.5); Mean Corpuscular Volume 94 fL (80-100); Mean Platelet Volume 10.1 fL (9.1-12.4); NEUTROPHILS ABSOLUTE AUTO 3.45 K/mm3 (1.96-9.15); NEUTROPHILS PERCENT AUTO 55 % (41-73); Platelet Count 200 K/mm3 (150-400); RDW Coefficient Variation 13.5 % (11.7-14.2); RDW Standard Deviation 46.3 fL (35.1-46.3); Red Blood Cell Count 4.29 M/mm3 (3.80-5.20); White Blood Cell Count 6.27 K/mm3 (4.00-11.30)
--- NOTE | 2024-12-03 04:16 | NUR ---
SHIFT SUMMARY PT A&O X4, ABLE TO MAKE NEEDS KNOWN. VSS, AFEBRILE. TELE SHOWS AFIB WITH RATE OF 90S-110S AT REST AND WILL INCREASE TO 120S-130S WITH ACTIVITY. SPO2 >92% ON RA. PT DENIES CP OR SOB. PT IS SBA TO THE RESTROOM. SHE DENIES DIZZINESS THIS SHIFT. PT WITH REPORT OF PAIN IN BILATERAL LEGS, MEDICATED PER EMAR. PT IS NOW RESTING IN BED, CALL LIGHT IN REACH, BREATHING EVEN AND UNLABORED.
[2024-12-03 04:43] LABS: Bun/Creatinine Ratio 36.5 (12.0-20.0); Calcium, Blood 8.6 mg/dL (8.5-10.1); Creatinine, Blood 0.93 mg/dL (0.40-1.00); Potassium, Blood 3.8 mmol/L (3.5-5.5)
[2024-12-03] MEDS ORDERED: Furosemide 40 MG Tab PO SCH (09:00)
--- NOTE | 2024-12-03 09:30 | NUR ---
AM NOTE PT ALERT, ORIENTED X4; CALM AND COOPERATIVE WITH CARE. PT UP IN CHAIR WITH SBA. PT REPORTS INTERMITTENT LIGHTHEADEDNESS AT TIMES. PT DENIES PAIN, CHEST PAIN/PRESSURE, SOB, NAUSEA, DIZZINESS AND NUMB/TINGLING. TELE AFIB 80-110'S AT REST, 130S WITH ACTIVITY, BP SIGNIFICANTLY HIGHER ON RIGHT SIDE, DISCUSSED WITH DR ANDINO, OK TO GIVE AM MEDICATIONS. SPO2 >90% ON RA, BREATHING EVEN AND UNLABORED, LS CLEAR. ABD SOFT, NONTENDER, +BT T/O. NO EDEMA NOTED. HAS FLAVIA HOSE IN PLACE. OTHER VSS. CALL LIGHT WITHIN REACH.
[2024-12-03 13:33] LABS: Albumin, Blood 3.8 g/dL (3.4-5.0); Anion Gap 10 mmol/L (3-11); Blood Urea Nitrogen 29 mg/dL (8-24); CO2, Blood 25 mmol/L (21-32); Calcium, Blood 9.5 mg/dL (8.5-10.1); Chloride, Blood 105 mmol/L (98-108); Creatinine, Blood 0.83 mg/dL (0.40-1.00); Glomerular Filtration Rate 70 (60-); Glucose, Blood 132 mg/dL (70-99); Magnesium, Blood 2.3 mg/dL (1.6-2.4); Phosphorus, Blood 3.1 mg/dL (2.5-4.9); Potassium, Blood 4.1 mmol/L (3.5-5.5); Sodium, Blood 136 mmol/L (136-145)
--- NOTE | 2024-12-03 17:05 | NUR ---
Shift Summary Pt continues to report baseline intermittent lightheadedness, no dizziness. VSS. No other acute changes noted. Call light within reach
[2024-12-04] VITALS (11 sets, daily range): BP systolic 91–127; BP diastolic 56–81
[2024-12-04] MEDS ORDERED: Midodrine 2.5 MG Tab PO SCH (10:20)
--- NOTE | 2024-12-04 18:38 | NUR ---
PATIENT SUMMARY Patient is A/O x4, AFIB on tele, HR ranges from 80's-100 at rest and 100-130's with activity, BP soft this shift with varience with activity. MD. Duncan started midodrine for BP support, administered per EMAR. Ambulates independently in room, had a small unremarkable BM today, has urinary urgency but is continent. Patient resting in room with friend at bedside, call light within reach. Plan for discharge tomorrow.
--- NOTE | 2024-12-04 23:40 | NUR ---
SHIFT SUMMARY- NO ACUTE CHANGES BP AND HR STABLE AT THIS TIME. SYSTOLICS GREATER THAN 100, HR IN THE 70'S. NO COMPLAINTS OF CP OR DIZZINESS WHEN AMBULATING. OTHER BODY SYSTEMS WNL.
[2024-12-05 04:21] LABS: Bun/Creatinine Ratio 32.3 (12.0-20.0); Calcium, Blood 9.1 mg/dL (8.5-10.1); Creatinine, Blood 0.96 mg/dL (0.40-1.00); Potassium, Blood 3.9 mmol/L (3.5-5.5)
[2024-12-05 04:33] VITALS: BP 109/66
[2024-12-05 07:35] VITALS: BP 102/64
--- NOTE | 2024-12-05 07:45 | NUR ---
INITIAL ASSESSMENT: Patient is awake lying in bed. She is alert and oriented x4 denies pain at this time. She is still in A-Fib with a rate in the 70s, blood pressure is stable at this time. LS CTA, biox is high 90s on RA. BT+. PPP. She has some scattered bruising to her forearms. PPP, no edema present at this time. She denies other needs at this time. Call light in reach.
[2024-12-05] MEDS ORDERED: Sacubitril/Valsartan 24 MG-26 MG Tab PO SCH (09:00)
[2024-12-05] MEDS ORDERED: Furosemide 20 MG Tab PO SCH (09:00)
[2024-12-05] MEDS ORDERED: Metoprolol Succinate 25 MG TABCR PO SCH (09:00)
[2024-12-05] MEDS ORDERED: Midodrine 2.5 MG Tab PO SCH (10:40)
[2024-12-05 11:19] VITALS: BP 96/60
--- NOTE | 2024-12-05 12:13 | NUR ---
Update: Patient C/O, "not feeling well at all." She stated she was sick to her stomach, Zofran given. Dr. Duncan has been to see the patient, he ordered Midodrine. All am meds given. Patient denies other needs at this time and just wants to rest. Call light in reach.
[2024-12-05 14:06] VITALS: BP 102/66
--- NOTE | 2024-12-05 17:36 | NUR ---
SUMMARY: Patient has been alert and oriented x4 T/O the shift. She has been ambulating IND to the bathroom with steady gait. She remains in A-Fib in the 70s-80s, no chest pain or pressure. Blood pressure on the soft side this AM, Midodrine re ordered. LS CTA, biox has been high 90s on RA. BT+, she did have one episode of nausea this AM-this subsided after a dose of Zofran.PPP. No other changes this shift, plan for DC in the AM. Will report to oncoming RN.
[2024-12-05 19:27] VITALS: BP 104/75
[2024-12-05 23:53] VITALS: BP 102/66
[2024-12-06 03:37] VITALS: BP 116/76
[2024-12-06 03:51] LABS: BASOPHILS ABSOLUTE AUTO 0.04 K/mm3 (0.00-0.23); BASOPHILS PERCENT AUTO 1 % (0-2); EOSINOPHILS ABSOLUTE AUTO 0.15 K/mm3 (0.00-0.68); EOSINOPHILS PERCENT AUTO 3 % (0-6); Hematocrit 41.9 % (33.0-51.0); Hemoglobin 13.7 g/dL (11.5-16.0); IMMATURE GRAN ABSOLUTE AUTO 0.01 K/mm3 (0.00-0.10); IMMATURE GRAN PERCENT AUTO 0 % (0-1); LYMPHOCYTES ABSOLUTE AUTO 2.01 K/mm3 (0.84-5.20); LYMPHOCYTES PERCENT AUTO 36 % (21-46); MONOCYTES ABSOLUTE AUTO 0.54 K/mm3 (0.16-1.47); MONOCYTES PERCENT AUTO 10 % (4-13); Mean Corpuscular HGB Conc 32.7 g/dL (31.5-36.5); Mean Corpuscular Volume 95 fL (80-100); NEUTROPHILS ABSOLUTE AUTO 2.77 K/mm3 (1.96-9.15); NEUTROPHILS PERCENT AUTO 50 % (41-73); Platelet Count 201 K/mm3 (150-400); RDW Coefficient Variation 13.6 % (11.7-14.2); RDW Standard Deviation 47.7 fL (35.1-46.3); Red Blood Cell Count 4.42 M/mm3 (3.80-5.20); White Blood Cell Count 5.52 K/mm3 (4.00-11.30)
[2024-12-06 04:15] LABS: Creatinine, Blood 1.11 mg/dL (0.40-1.00); Potassium, Blood 4.4 mmol/L (3.5-5.5)
--- NOTE | 2024-12-06 06:47 | NUR ---
PT STABLE THROUGHOUT SHIFT. NO C/O CP OR DYSPNEA. PT AOX4 AND SBA/INDEPENDENT TO BR. PT IS [place] BUT IS ABLE TO COMMUNICATE WELL AND MAKE NEEDS KNOWN. PT VITAL WNL EXCEPT FOR A SMALL RUN OF BRADYCARDIA X1 WHILE SLEEPING, PT ASYMPTOMATIC. PT HAS REMAINED IN AFIB WITH A CONTROLLED VENTRICULAR RATE THROUGHOUT THE SHIFT. PT HAS HAD GOOD URINARY OUTPUT. PT HAS BEEN VERY PLEASANT AND COOPERATIVE. PT WAS ABLE TO RECEIVE HER ENTRESTO DURING NOC SHIFT MED PASS HER BP WAS WITHIN PARAMETERS.
[2024-12-06 07:33] VITALS: BP 110/65
[2024-12-06] MEDS ORDERED: Metoprolol Succinate 25 MG TABCR PO SCH (09:00)
[2024-12-06 11:50] VITALS: BP 100/65
--- NOTE | 2024-12-06 11:52 | NUR ---
ORTHOSTATIC BLOOD PRESSURES: AM SET:[id number] LAYING 102/887561% LAYING TO SIT 88/4280074% SITTING 104/704071% SIT TO STAND 94/3477446% STANDING 104/216403% PATIENT DID EXPERIENCE "LIGHTHEADEDNESS," ON LAYING TO SIT. NOON SET: LAYING 100/078691% LAYING TO SIT 100/541915% SITTING 105/042279% SIT TO STAND 95/776639% STANDING 100/226234% PATIENT EXPERIENCED NO SIGNS OR SYMPTOMS OF ORTHOSTATIC CHANGES.
--- NOTE | 2024-12-06 12:15 | NUR ---
PAUSE ON TELE PATIENT HAD A 2.[address] NEWBERRY AWARE
[2024-12-06] MEDS ORDERED: FURO20 PO (14:32)
[2024-12-06] MEDS ORDERED: DIGOX125 MC1 PO (14:41)
[2024-12-06 16:39] VITALS: BP 102/599
--- NOTE | 2024-12-06 17:06 | NUR ---
SHIFT SUMMARY PATIENT AOX4 ABLE TO MAKE HER NEEDS KNOWN. HER VITALS ARE STABLE AND SHE IS INDEPENDENT IN HER ROOM. SHE DENIES CHEST PAIN AND SHORTNESS OF BREATH. SHE HAD ORTHOSTATIC VITALS TAKEN IN THE MORNING AND THE AFTERNOON AND THEY WERE STABLE AND CHARTED. SHE DID HAVE A 2.85 SEC PAUSE HOSPITALIST WAS AWARE AND ORDERED THE ZIO PATCH. HER DISCHARGE INSTRUCTION WERE EXPLAINED AND SHE UNDERSTANDS ALL INSTRUCTIONS AND FOLLOW UP INFO WITH NO FURTHER QUESTIONS. SHE IS JUST WAITING FOR HER DAUGHTER TO COME PICK HER UP.
== END 2024-12-06 18:17 | disposition home or self-care (01) | DRG 309 ==
LOC: ER 04:10 → ERHOLD 04:11 → PCU 04:11
PROVIDERS: Emergency Medicine; Family Medicine; ADMIT Student in an Organized Health Care Education/Training Program
DX: I48.91 Unspecified atrial fibrillation (principal); I50.22 Chronic systolic (congestive) heart failure; I11.0 Hypertensive heart disease with heart failure; Z96.649 Presence of unspecified artificial hip joint; Z60.2 Problems related to living alone; I45.10 Unspecified right bundle-branch block; E87.6 Hypokalemia; I95.1 Orthostatic hypotension; S31.512A Laceration without foreign body of unspecified external genital organs, female, initial encounter; Z79.01 Long term (current) use of anticoagulants; Z79.899 Other long term (current) drug therapy; Z87.19 Personal history of other diseases of the digestive system; Z87.891 Personal history of nicotine dependence; X58.XXXA Exposure to other specified factors, initial encounter; Z79.84 Long term (current) use of oral hypoglycemic drugs
CPT/HCPCS: 36415; 71046; 80048; 80053; 80069; 80162; 83735; 83880; 84100; 84484; 85025; 85610; 85730; 93005; 93010; 93246; 93930; 94762; 96374; 96376; 99285-25; A9270; G0378; J1160; J2405; J7120